=== PATIENT | male | born 1960 | race Caucasian/White ===

== ENCOUNTER 2018-12-23 10:32 | Emergency (ER) | payer OTHER ==
[~2018-12-23] VITALS: Ht 165.1 cm; Wt 89.4 kg
[~2018-12-23 10:32] MED LIST: DICYCLOMINE10 M1 PO; GOOD SENSE ASPI81 M3 PO; NORCO1 TA1 PO; NORCO1 TA2 PO; PRINIVIL10 MG PO
[2018-12-23 10:37] VITALS: Ht 165.1 cm; Wt 89.4 kg
[2018-12-23 11:07] LABS: microscopic required? NO
[2018-12-23 11:10] LABS: BASOPHIL % 0.9 % (0-2); PLATELET COUNT 309 x10^3mcL (130-400); RED CELL DISTRIBUTION WIDTH 12.7 % (11.5-14.5)
[2018-12-23 11:16] LABS: urine erythrocyte NEGATIVE (NEGATIVE)
[2018-12-23 11:27] LABS: ALKALINE PHOSPHATASE 71 U/L (46-116); ALT/SGPT 32 U/L (16-63); AST/SGOT 28 U/L (15-37); BILIRUBIN TOTAL 0.6 mg/dL (0.20-1.00); CALCIUM 9.5 mg/dL (8.5-10.1); CARBON DIOXIDE 31.2 mmol/L (21-32); GFR1 > 60 mL/min; GLUCOSE SERUM 125 mg/dL (74-106)
[2018-12-23 11:45] LABS: CHLORIDE SERUM 98 mmol/L (98-107); POTASSIUM SERUM 4.5 mmol/L (3.5-5.1); SODIUM SERUM 136 mmol/L (136-145)
[2018-12-23 12:20] VITALS: BP 142/113
== END 2018-12-23 12:20 | disposition home or self-care (01) ==
LOC: ED 10:32
PROVIDERS: Emergency Medicine
DX: R55 Syncope and collapse (principal); I10 Essential (primary) hypertension; Z98.890 Other specified postprocedural states
CPT/HCPCS: 36415; 83880; Q0092